=== PATIENT | female | born 1955 | race African-American/Black ===

== ENCOUNTER 2017-08-03 13:48 | Emergency (ER) | payer OTHER ==
[~2017-08-03] VITALS: Ht 160 cm; Wt 72.6 kg
[2017-08-03 13:48] VITALS: BP_SYST 157
[2017-08-03] MEDS ORDERED: KETOROLAC TROMETHAMINE 60 MG/2 ML VIAL IM ONE (14:00)
[2017-08-03 14:44] VITALS: BP_SYST 142
== END 2017-08-03 14:43 | disposition home or self-care (01) ==
LOC: SED 13:48
DX: S16.1XXA Strain of muscle, fascia and tendon at neck level, initial encounter (principal); I10 Essential (primary) hypertension; Z90.710 Acquired absence of both cervix and uterus; V43.52XA Car driver injured in collision with other type car in traffic accident, initial encounter; Y93.89 Activity, other specified; Y92.410 Unspecified street and highway as the place of occurrence of the external cause; Y99.8 Other external cause status
CPT/HCPCS: 96372; 99283; J1885